=== PATIENT | female | born 1965 | race American Indian/Alaskan Native ===

== ENCOUNTER 2018-05-21 14:57 | Emergency (ER) | payer BC ==
[2018-05-21] MEDS ORDERED: NACL 0.9% 1000 ML 1,000 ML IV ONE (15:37)
[2018-05-21 16:10] LABS: Bacteria,Urine 4+ /HPF (Negative); Bilirubin,Urine NEG (Negative); Blood,Urine NEG (Negative); Color,Urine Yellow (Yellow); Mucus,Urine 1+ /HPF; Urobilinogen,Urine < 2.0 mg/dL (<2.0)
[2018-05-21 16:15] LABS: Basophils % (Auto) 0.7 % (0.0-1.8); Eosinophils # (Auto) 0.1 K/mm3 (0.0-0.4); Eosinophils % (Auto) 1.7 % (0.0-4.3); Hematocrit 39.2 % (30.3-42.9); Lymphocytes # (Auto) 1.9 K/mm3 (1.2-5.4); Lymphocytes % (Auto) 34.1 % (13.4-35.0); Mean Corpuscular HGB Conc 33 % (30-34); Mean Corpuscular Hemoglobin 28 pg (28-32); Mean Corpuscular Volume 85 fl (79-97); Monocytes # (Auto) 0.5 K/mm3 (0.0-0.8); Monocytes % (Auto) 9.8 % (0.0-7.3); Platelet Count 453 K/mm3 (140-440); Red Blood Count 4.61 M/mm3 (3.65-5.03); Red Cell Distribution Width 14.4 % (13.2-15.2)
[2018-05-21 16:33] LABS: Alanine Aminotransferase 17 units/L (7-56); Albumin 4.5 g/dL (3.9-5); BUN/Creatinine Ratio 16; Blood Urea Nitrogen 11 mg/dL (7-17); Calcium 9.3 mg/dL (8.4-10.2); Hemolysis Index 13; Lipase 21 units/L (13-60)
[2018-05-21] MEDS ORDERED: TORADOL IM ONE (18:05)
--- NOTE | 2018-05-21 20:28 | Cat Scan Report ---
FINAL REPORT PROCEDURE: CT abdomen and pelvis with contrast. TECHNIQUE: Computerized axial tomography of the abdomen and pelvis was performed after the IV inject ion of iodinated nonionic contrast. HISTORY: Upper abdominal pain that radiates to the back. COMPARISON: No prior studies are available for comparison. FINDINGS: The lung bases are clear. There are no pleural effusions. The heart size is mildly enlarged. The live r, pancreas and spleen appear normal. The gallbladder is present. The adrenal glands are not enlarged . Both kidneys appear normal in size and configuration. The abdominal aorta has a normal caliber. The re is no retroperitoneal adenopathy. The unopacified gastrointestinal tract is unremarkable. The appe ndix is not identified. The bladder, uterus and adnexal regions appear normal. The regional skeleton appears intact. IMPRESSION: No evidence of acute disease in the abdomen or pelvis.
--- NOTE | 2018-05-21 21:06 | Emergency Department Report ---
ED Abdominal Pain HPI - General Chief Complaint: Abdominal Pain Stated Complaint: SEVERE ABD PAIN Time Seen by Provider: 05/21/18 17:08 Source: patient Mode of arrival: Ambulatory Limitations: No Limitations - History of Present Illness Initial Comments: 52-year-old female currently under pain management for sciatica on oral opiate overdose is most department complaining of bilateral upper quadrant and epigastric abdominal pain sharp in nature. It is across abdomen and radiated through to her back. She initially follow-up with for this pain and was found to have constipation due to the pain medication. She was taken. She was prescribed some medications to help move her bowel and states after having a few bowel movements. That's her abdominal pain so worsening. Pain is sharp and spastic in nature. No provocative factors noted. Although pain medication has helped resolve the abdominal discomfort. No fever, chills, sweats. No hematemesis, hematochezia. No hematuria. She denies any dysuria. MD Complaint: abdominal pain Location: diffuse Radiation: LUQ, RUQ, epigastric, back Severity: moderate Severity scale (0 -10): 8 Quality: sharp Consistency: intermittent Worsens With: medication Associated Symptoms: nausea. denies: constipation, dysuria, hematemesis, melena, anorexia, syncope - Related Data Previous Rx's Medication Instructions Recorded Last Taken Type Hyoscyamine Subl [Levsin Sl 0.125 0.125 mg SL Q6HR PRN #20 tab 05/21/18 Unknown Rx TAB] Ondansetron [Zofran ODT TAB] 8 mg PO Q12HR #14 tab.rapdis 05/21/18 Unknown Rx Allergies Allergy/AdvReac Type Severity Reaction Status Date / Time No Known Allergies Allergy Verified 05/21/18 20:57 ED Review of Systems ROS: Stated complaint: SEVERE ABD PAIN Other details as noted in HPI ED Past Medical Hx - Past Medical History Hx Hypertension: Yes Additional medical history: CHRONIC BACK PAIN - Surgical History Past Surgical History?: Yes Additional Surgical History: - Social History Smoking Status: Current Every Day Smoker Substance Use Type: None - Medications Home Medications: Home Medications Medication Instructions Recorded Confirmed Last Taken Type Hyoscyamine Subl [Levsin Sl 0.125 0.125 mg SL Q6HR PRN #20 tab 05/21/18 Unknown Rx TAB] Ondansetron [Zofran ODT TAB] 8 mg PO Q12HR #14 tab.rapdis 05/21/18 Unknown Rx ED Physical Exam - General Limitations: No Limitations General appearance: alert, in no apparent distress - Head Head exam: Present: atraumatic, normocephalic - Eye Eye exam: Present: normal appearance, PERRL, EOMI - ENT ENT exam: Present: normal exam, mucous membranes moist - Neck Neck exam: Present: normal inspection - Respiratory Respiratory exam: Present: normal lung sounds bilaterally. Absent: respiratory distress, rales, rhonchi, chest wall tenderness, accessory muscle use - Cardiovascular Cardiovascular Exam: Present: regular rate, normal rhythm. Absent: systolic murmur, diastolic murmur, rubs, gallop - GI/Abdominal GI/Abdominal exam: Present: soft, tenderness, normal bowel sounds, other (pain to the left upper quadrant, right upper quadrant and epigastrium with palpation. No Rovsing, no Dejesus Rm no [place] sign. No distention). Absent: rebound, rigid, organomegaly - Extremities Exam Extremities exam: Present: normal inspection, normal capillary refill - Back Exam Back exam: Present: normal inspection, full ROM. Absent: CVA tenderness (R), CVA tenderness (L) - Neurological Exam Neurological exam: Present: alert, oriented X3, CN II-XII intact. Absent: normal gait, motor sensory deficit - Psychiatric Psychiatric exam: Present: normal affect, normal mood - Skin Skin exam: Present: warm, dry, intact, normal color. Absent: rash ED Course Vital Signs 05/21/18 15:31 Temperature 99.2 F Pulse Rate 84 Respiratory 18 Rate Blood Pressure 166/94 O2 Sat by Pulse 97 Oximetry ED Medical Decision Making - Lab Data Result diagrams: 05/21/18 16:03 05/21/18 16:03 - Radiology Data Radiology results: report reviewed Negative exam findings Critical care attestation.: If time is entered above; I have spent that time in minutes in the direct care of this critically ill patient, excluding procedure time. ED Disposition Clinical Impression: Upper abdominal pain Disposition: DC-01 TO HOME OR SELFCARE Is pt being admited?: No Does the pt Need Aspirin: No Condition: Stable Instructions: Abdominal Pain (ED) Referrals: PRIMARY CARE, [Primary Care Provider] - 3-5 Days [facility] [Provider Group] - 2-3 Days
[2018-05-21] MEDS ORDERED: TORADOL ONE (21:09)
[2018-05-21] MEDS ORDERED: TORADOL IV ONE (21:14)
[2018-05-21] MEDS ORDERED: SUBLIMAZE IV STA (21:47)
[2018-05-21 21:58] VITALS: BP 166/85
== END 2018-05-21 21:59 | disposition home or self-care (01) ==
LOC: ED 14:57
DX: R10.13 Epigastric pain (principal); F17.200 Nicotine dependence, unspecified, uncomplicated; I10 Essential (primary) hypertension; M54.9 Dorsalgia, unspecified; G89.29 Other chronic pain
CPT/HCPCS: 36415; 74177; 80053; 81001; 83690; 85025; 96372; 96374; 96375; 99284; J1885; J3010; J7030; Q9967